=== PATIENT | female | born 1995 | race African-American/Black ===

== ENCOUNTER 2016-07-04 15:32 | Emergency (ER) | payer MEDICAID ==
[~2016-07-04] VITALS: Ht 172.7 cm; Wt 59.0 kg
[2016-07-04 15:37] VITALS: BP 127/66
== END 2016-07-04 19:27 | disposition home or self-care (01) ==
LOC: ER 19:05
DX: B35.4 Tinea corporis (principal); R21 Rash and other nonspecific skin eruption
CPT/HCPCS: 99283

== ENCOUNTER 2016-07-07 14:09 | Emergency (ER) | payer MEDICAID ==
[~2016-07-07] VITALS: Ht 172.7 cm; Wt 64.0 kg
[2016-07-07 14:30] VITALS: BP 121/62
[2016-07-07] MEDS ORDERED: TERBINAFINE HCL 1% CREAM 30GM TOP STA (14:42)
[2016-07-07] MEDS ORDERED: PREDNISONE 20MG TABLET PO ONE (14:45)
== END 2016-07-07 16:30 | disposition home or self-care (01) ==
LOC: ER 14:18
DX: R21 Rash and other nonspecific skin eruption (principal)
CPT/HCPCS: 81025; 99283; J7512

== ENCOUNTER 2017-04-18 11:41 | Emergency (ER) | payer MEDICAID ==
[~2017-04-18] VITALS: Ht 172.7 cm; Wt 64.0 kg
[2017-04-18 13:02] VITALS: BP 122/70
== END 2017-04-18 13:03 | disposition home or self-care (01) ==
LOC: ER 12:36
DX: L08.9 Local infection of the skin and subcutaneous tissue, unspecified (principal)
CPT/HCPCS: 99283